=== PATIENT | male | born 1985 | race Caucasian/White ===

== ENCOUNTER 2019-12-04 21:16 | Emergency (ER) | payer BC ==
--- NOTE | 2019-12-04 21:27 | EDM.PDOC ---
ED HPI GENERAL MEDICAL PROBLEM - General Chief Complaint: ENT Problem Stated Complaint: LEFT EAR PAIN Time Seen by Provider: 12/04/19 21:26 Source of Information: Reports: Patient History Limitations: Reports: No Limitations - History of Present Illness INITIAL COMMENTS - FREE TEXT/NARRATIVE: HISTORY AND PHYSICAL: History of present illness: Patient is a 34-year-old male presents to the ED With complaint of left ear pain. Patient states he was seen in the [place] [facility] 2 days ago and given ofloxacin drops for his ear. He states his ear has since been draining and he is having constant pain in the ear. He states he has also been dizzy and throwing up. states he can't walk straight. Patient states he had one episode of vomiting today but other morales has been keeping fluids down. He denies significant past medical history. He denies chest pain, shortness of breath, headache, fevers, abdominal pain, diarrhea. Review of systems: As per history of present illness and below otherwise all systems reviewed and negative. Past medical history: As per history of present illness and as reviewed below otherwise noncontributory. Surgical history: As per history of present illness and as reviewed below otherwise noncontributory. Social history: No reported history of drug or alcohol abuse. Family history: As per history of present illness and as reviewed below otherwise noncontributory. Physical exam: General: Patient sitting comfortably in no acute distress and nontoxic appearing HEENT: Right TM is clear. Left ear canal with otorrhea, TM partially visualized and appears to be erythematous and bulging. No definitive perforation noted. Atraumatic, normocephalic, pupils reactive, negative for conjunctival pallor or scleral icterus, mucous membranes moist, throat clear, neck supple, nontender, trachea midline. No meningeal signs. Lungs: Clear to auscultation, breath sounds equal bilaterally, chest nontender. Heart: S1S2, regular, negative for clicks, rubs, or overt murmur. Abdomen: Soft, nondistended, nontender. Negative for masses or hepatosplenomegaly. Negative for costovertebral tenderness. No rigidity, rebound , guarding. Pelvis: Stable nontender. Genitourinary: Deferred. Rectal: Deferred. Extremities: Atraumatic, negative for cords or calf pain. Neurovascular unremarkable. Neuro: Awake, alert, oriented. Cranial nerves II through XII unremarkable. Cerebellum unremarkable. Motor and sensory unremarkable throughout. Exam nonfocal. Notes: Patient appears well hydrated. Normal neurologic examination. Vertigo likely due to BPPV associated with the inner ear infection. Patient advised to follow up with primary care provider or return to ED if new or worsening symptoms. Diagnostics: none Therapeutics: meclizine Prescriptions: Amoxicillin, meclizine Impression: Left otitis media, vertigo Plan: Take antibiotic and meclizine as instructed Follow up with primary care provider Return to ED as needed as discussed Definitive disposition and diagnosis as appropriate pending reevaluation and review of above. - Related Data Allergies Allergy/AdvReac Type Severity Reaction Status Date / Time No Known Allergies Allergy Verified 12/04/19 21:31 Home Meds: Home Meds . [No Known Home Meds] 12/04/19 [History] ED ROS ENT - Review of Systems Review Of Systems: Comprehensive ROS is negative, except as noted in HPI. ED EXAM, ENT - Physical Exam Exam: See Below (See dictation) Course - Vital Signs Last Recorded V/S: Last Vital Signs Temp 98.1 F 12/04/19 21:28 Pulse 123 H 12/04/19 21:28 Resp 16 12/04/19 21:28 BP 147/102 H 12/04/19 21:28 Pulse Ox 97 12/04/19 21:28 - Orders/Labs/Meds Meds: Medications Discontinued Medications Generic Name Dose Route Start Last Admin Trade Name Williamsq PRN Reason Stop Dose Admin Meclizine HCl 25 mg 12/04/19 21:38 Antivert PO 12/04/19 21:39 ONETIME ONE Departure - Departure Time of Disposition: 21:47 Disposition: Home, Self-Care 01 Condition: Good Clinical Impression: Left otitis media, Vertigo - Discharge Information Referrals: PCP,None [Primary Care Provider] - Forms: ED Department Discharge Additional Instructions: The following information is given to patients seen in the emergency department who are being discharged to home. This information is to outline your options for follow-up care. We provide all patients seen in our emergency department with a follow-up referral. The need for follow-up, as well as the timing and circumstances, are variable depending upon the specifics of your emergency department visit. If you don't have a primary care physician on staff, we will provide you with a referral. We always advise you to contact your personal physician following an emergency department visit to inform them of the circumstance of the visit and for follow-up with them and/or the need for any referrals to a consulting specialist. The emergency department will also refer you to a specialist when appropriate. This referral assures that you have the opportunity for follow-up care with a specialist. All of these measure are taken in an effort to provide you with optimal care, which includes your follow-up. Under all circumstances we always encourage you to contact your private physician who remains a resource for coordinating your care. When calling for follow-up care, please make the office aware that this follow-up is from your recent emergency room visit. If for any reason you are refused follow-up, please contact the [facility] Emergency Department at and asked to speak to the emergency department charge nurse. [facility] [address] [place] [id number] [place] [address] Take antibiotic and meclizine as instructed Follow up with primary care provider Return to ED as needed as discussed Sepsis Event Note - Focused Exam Vital Signs: Vital Signs Temp Pulse Resp BP Pulse Ox 12/04/19 21:28 98.1 F 123 H 16 147/102 H 97 Date Exam was Performed: 12/04/19 Time Exam was Performed: 21:40
[2019-12-04] MEDS ORDERED: Meclizine 25 MG Tab PO ONE (21:38)
== END 2019-12-04 22:08 | disposition home or self-care (01) ==
LOC: MW.ED 21:16
DX: H66.92 Otitis media, unspecified, left ear (principal); R42 Dizziness and giddiness
CPT/HCPCS: 99283; A9270